=== PATIENT | female | born 1995 | race American Indian/Alaskan Native ===

== ENCOUNTER 2018-05-26 08:29 | Emergency (ER) | payer MEDICAID ==
[2018-05-26 08:37] VITALS: BP 123/77
[2018-05-26 09:17] LABS: Bilirubin,Urine NEG (Negative); Blood,Urine NEG (Negative); Color,Urine Yellow (Yellow); Mucus,Urine 1+ /HPF; Protein,Urine <15 mg/dL mg/dL (Negative)
[2018-05-26] MEDS ORDERED: ZOFRAN ODT PO ONE (09:39)
--- NOTE | 2018-05-26 09:42 | Emergency Department Report ---
ED General Adult HPI - General Chief complaint: Nausea/Vomiting/Diarrhea Stated complaint: NAUSEA & VOMITING Time Seen by Provider: 05/26/18 09:36 Source: patient Mode of arrival: Ambulatory Limitations: No Limitations - History of Present Illness Initial comments: Patient is 23 years old female 2 para 1. Patient presented to the ER complaining of abdominal cramping and nausea and vomiting for the last 2 weeks. Patient stated that her last period was beginning of April. Patient denied any vaginal bleeding or vaginal discharge. No urinary symptoms. Patient denied any fever or diarrhea. Patient stated that she had a positive test one week ago at an urgent care clinic. - Related Data Home Medications Medication Instructions Recorded Confirmed Last Taken Sulfamethoxazole/Trimethoprim 1 each PO BID 08/22/13 08/22/13 08/21/13 23:30 [Bactrim DS] 1 tablet traMADol [Ultram] 50 mg PO Q4HR PRN 08/22/13 08/22/13 08/21/13 23:30 1 tablet Previous Rx's Medication Instructions Recorded Last Taken Type Ibuprofen [Motrin 600 MG tab] 600 mg PO Q8H PRN #14 tablet 08/22/13 Unknown Rx Promethazine [Phenergan] 25 mg PO Q6H PRN #14 tablet 08/22/13 Unknown Rx Allergies Allergy/AdvReac Type Severity Reaction Status Date / Time No Known Allergies Allergy Verified 05/26/18 08:35 ED Review of Systems ROS: Stated complaint: NAUSEA & VOMITING Other details as noted in HPI Comment: All other systems reviewed and negative Constitutional: denies: chills, fever Respiratory: denies: cough Cardiovascular: denies: chest pain, palpitations Gastrointestinal: abdominal pain, nausea. denies: vomiting ED Past Medical Hx - Past Medical History Previous Medical History?: No - Surgical History Past Surgical History?: No - Social History Smoking Status: Never Smoker Substance Use Type: None - Medications Home Medications: Home Medications Medication Instructions Recorded Confirmed Last Taken Type Ibuprofen [Motrin 600 MG tab] 600 mg PO Q8H PRN #14 tablet 08/22/13 Unknown Rx Promethazine [Phenergan] 25 mg PO Q6H PRN #14 tablet 08/22/13 Unknown Rx Sulfamethoxazole/Trimethoprim 1 each PO BID 08/22/13 08/22/13 08/21/13 23:30 History [Bactrim DS] 1 tablet traMADol [Ultram] 50 mg PO Q4HR PRN 08/22/13 08/22/13 08/21/13 23:30 History 1 tablet ED Physical Exam - General Limitations: No Limitations General appearance: alert, in no apparent distress - Head Head exam: Present: atraumatic, normocephalic - ENT ENT exam: Present: normal exam, normal orophraynx, mucous membranes moist - Neck Neck exam: Present: normal inspection, full ROM. Absent: tenderness, meningismus, lymphadenopathy, thyromegaly - Respiratory Respiratory exam: Present: normal lung sounds bilaterally. Absent: respiratory distress, wheezes, decreased breath sounds, prolonged expiratory - Cardiovascular Cardiovascular Exam: Present: regular rate, normal rhythm, normal heart sounds - GI/Abdominal GI/Abdominal exam: Present: soft, normal bowel sounds. Absent: distended, tenderness, guarding, rebound, rigid, organomegaly, mass, bruit, pulsatile mass , hernia - Extremities Exam Extremities exam: Present: normal inspection, full ROM, normal capillary refill - Back Exam Back exam: Present: normal inspection, full ROM. Absent: tenderness, CVA tenderness (R), CVA tenderness (L), muscle spasm, paraspinal tenderness, vertebral tenderness - Neurological Exam Neurological exam: Present: alert, oriented X3, CN II-XII intact, normal gait, reflexes normal - Skin Skin exam: Present: warm, intact, normal color ED Course Vital Signs 05/26/18 08:35 Temperature 98.9 F Pulse Rate 90 Respiratory 16 Rate Blood Pressure 123/77 O2 Sat by Pulse 99 Oximetry ED Medical Decision Making - Lab Data Result diagrams: 05/26/18 09:03 05/26/18 09:03 - Radiology Data Radiology results: report reviewed Referring Physician: VIC VAZQUEZ Patient Name: CHELLY BORJA Date of : 1995 Sex: Female Report Date: 2018-05-26 Report Status: Finalized Findings [facility] [address] [place] [address] Ultrasound Report Signed Patient: CHELLY BORJA MR#: [id number] : 1995 Acct:[id number] Age/Sex: 23 / F ADM Date: 05/26/18 Loc: ED Attending Dr: Ordering Physician: VIC VAZQUEZ Date of Service: 05/26/18 Procedure(s): US OB transvaginal Accession Number(s): [id number] cc: VIC VAZQUEZ FINAL REPORT EXAM: US OB TRANSVAGINAL HISTORY: , n/v TECHNIQUE: Early obstetrical ultrasound was performed. Transvaginal study in conjunction with transabdominal exam performed concurrently. PRIORS: None. FINDINGS: There is a gestational sac in the uterus. This contains a small yolk sac and pole. The crown rump length measurement corresponds to a gestational age of 7 weeks 1 day. This corresponds to MAUDE of 01/11/2019. Cardiac activity is identified, measured at 137 beats per minute. Small subchorionic hemorrhage measuring 1.0 x 0.8 x 1.3 cm. There is no free fluid. Left-sided corpus luteal cyst seen. Ovaries are otherwise unremarkable. IMPRESSION: There is a single live intrauterine of approximately 7 weeks 1 day gestational age. This corresponds to MAUDE of 01/11/2019. Small subchorionic hemorrhage. Transcribed By: DELMA Dictated By: GENARO ANTHONY MD Electronically Authenticated By: GENARO ANTHONY MD Signed Date/Time: 05/26/18 122 DD/ 21 TD/TT: 05/26/181221 Critical care attestation.: If time is entered above; I have spent that time in minutes in the direct care of this critically ill patient, excluding procedure time. ED Disposition Clinical Impression: Abdominal pain affecting , Nausea and vomiting Disposition: DC-01 TO HOME OR SELFCARE Is pt being admited?: No Condition: Stable Instructions: Abdominal Pain in (ED), Acute Nausea and Vomiting (ED) Referrals: PRIMARY CARE, [Primary Care Provider] - 3-5 Days
[2018-05-26 10:07] LABS: Alanine Aminotransferase 9 units/L (7-56); Albumin 4.1 g/dL (3.9-5); BUN/Creatinine Ratio 10; Blood Urea Nitrogen 6 mg/dL (7-17); Calcium 9.2 mg/dL (8.4-10.2); Hemolysis Index 4; Lipase 27 units/L (13-60)
[2018-05-26 10:28] LABS: Basophils % (Auto) 0.4 % (0.0-1.8); Eosinophils # (Auto) 0.1 K/mm3 (0.0-0.4); Hematocrit 37.6 % (30.3-42.9); Hemoglobin 12.8 gm/dl (10.1-14.3); Lymphocytes # (Auto) 2.2 K/mm3 (1.2-5.4); Lymphocytes % (Auto) 32.9 % (13.4-35.0); Mean Corpuscular HGB Conc 34 % (30-34); Mean Corpuscular Hemoglobin 30 pg (28-32); Mean Corpuscular Volume 89 fl (79-97); Monocytes # (Auto) 0.4 K/mm3 (0.0-0.8); Monocytes % (Auto) 6.4 % (0.0-7.3); Platelet Count 189 K/mm3 (140-440); Red Blood Count 4.23 M/mm3 (3.65-5.03); Red Cell Distribution Width 13.2 % (13.2-15.2)
--- NOTE | 2018-05-26 12:26 | Ultrasound Report ---
FINAL REPORT EXAM: US OB < = 14 WEEKS FETUS HISTORY: abdominal pain and . TECHNIQUE: Early obstetrical ultrasound was performed. Transabdominal study in conjunction with transvaginal exam performed concurrently. PRIORS: None. FINDINGS: There is a gestational sac in the uterus. This contains a small yolk sac and pole. The crown rump length measurement corresponds to a gestational age of 7 weeks 1 day. This corresponds to MAUDE of 01/11/2019. Cardiac activity is identified, measured at 137 beats per minute. Small subchorionic hemorrhage measuring 1.0 x 0.8 x 1.3 cm. There is no free fluid. Left-sided corpus luteal cyst seen. Ovaries are otherwise unremarkable. IMPRESSION: There is a single live intrauterine of approximately 7 weeks 1 day gestational age. This corresponds to MAUDE of 01/11/2019. Small subchorionic hemorrhage.
--- NOTE | 2018-05-26 12:27 | Ultrasound Report ---
FINAL REPORT EXAM: US OB TRANSVAGINAL HISTORY: , n/v TECHNIQUE: Early obstetrical ultrasound was performed. Transvaginal study in conjunction with transabdominal exam performed concurrently. PRIORS: None. FINDINGS: There is a gestational sac in the uterus. This contains a small yolk sac and pole. The crown rump length measurement corresponds to a gestational age of 7 weeks 1 day. This corresponds to MAUDE of 01/11/2019. Cardiac activity is identified, measured at 137 beats per minute. Small subchorionic hemorrhage measuring 1.0 x 0.8 x 1.3 cm. There is no free fluid. Left-sided corpus luteal cyst seen. Ovaries are otherwise unremarkable. IMPRESSION: There is a single live intrauterine of approximately 7 weeks 1 day gestational age. This corresponds to MAUDE of 01/11/2019. Small subchorionic hemorrhage.
== END 2018-05-26 12:52 | disposition home or self-care (01) ==
LOC: ED 08:29
DX: O26.891 Other specified pregnancy related conditions, first trimester (principal); O21.8 Other vomiting complicating pregnancy; R10.9 Unspecified abdominal pain; Z3A.01 Less than 8 weeks gestation of pregnancy
CPT/HCPCS: 36415; 76801; 76817; 80053; 81001; 83690; 84702; 85025; Q0162

== ENCOUNTER 2019-09-15 11:57 | Emergency (ER) | payer MEDICAID ==
[2019-09-15 13:16] VITALS: BP 138/74
--- NOTE | 2019-09-15 13:21 | Emergency Department Report ---
Blank Doc - Documentation Documentation: 24-year-old female that presents with left finger pain. This initial assessment/diagnostic orders/clinical plan/treatment(s) is/are subject to change based on patient's health status, clinical progression and re- assessment by fellow clinical providers in the ED. Further treatment and workup at subsequent clinical providers discretion. Patient/guardians urged not to elope from the ED as their condition may be serious if not clinically assessed and managed. Initial orders include: 1- Patient sent to [facility] for further evaluation and treatment 2- xrays
--- NOTE | 2019-09-15 14:19 | XRay Report ---
LEFT FINGERS, 3 VIEWS INDICATION: left 4th finger pain. COMPARISON: None. IMPRESSION: There is mild soft tissue swelling of the fourth digit. A very small chip fracture is i dentified at the base of the middle phalanx of the fourth digit on the frontal and oblique images. Th e remaining left fingers are intact. No joint pathology. Signer Name: Emmanuel Moreira Jr, MD Signed: 09/15/2019 2:14 PM Workstation Name: [id number]
[2019-09-15] MEDS ORDERED: IBUPROFEN 800 MG TAB PO ONE (14:41)
--- NOTE | 2019-09-15 14:48 | Emergency Department Report ---
ED Upper Extremity Inj HPI - General Chief Complaint: Extremity Injury, Upper Stated Complaint: FINGER INJURY Time Seen by Provider: 09/15/19 13:19 Source: patient Mode of arrival: Ambulatory Limitations: No Limitations - History of Present Illness Initial Comments: This is a 24-year-old female presents to ED complaining of left fourth digit pain after she accidentally jammed it against the car door this morning on the way to work. Patient states that pain is localized to the finger. Patient states she started to notice some swelling around the finger and redness she came in to be evaluated. She denies any bleeding or loss of sensation to the finger. Complaint: Injury to:: left, finger (fourth) -: This morning Other Extremity Injury: Fingers: Left (fourth ) Place: home Severity scale (0 -10): 6 Improves With: immobilization Worsens With: movement of extremity Context: other (jammed in car door) Associated Symptoms: denies other symptoms. denies: weakness, numbness - Related Data Home Medications Medication Instructions Recorded Confirmed Last Taken Sulfamethoxazole/Trimethoprim 1 each PO BID 08/22/13 08/22/13 08/21/13 23:30 [Bactrim DS] 1 tablet traMADol [Ultram] 50 mg PO Q4HR PRN 08/22/13 08/22/13 08/21/13 23:30 1 tablet Previous Rx's Medication Instructions Recorded Last Taken Type Ibuprofen [Motrin 600 MG tab] 600 mg PO Q8H PRN #14 tablet 08/22/13 Unknown Rx Promethazine [Phenergan] 25 mg PO Q6H PRN #14 tablet 08/22/13 Unknown Rx Ondansetron [Zofran Odt] 4 mg PO Q8HR PRN #20 tab.rapdis 05/26/18 Unknown Rx Vit Calc,Iron,Folic 1 each PO DAILY #30 tablet 05/26/18 Unknown Rx [ Vitamins] Amoxicillin/Potassium Clav 1 each PO BID #20 tablet 09/28/18 Unknown Rx [Augmentin 875-125 Tablet] Ibuprofen [Motrin 600 MG tab] 600 mg PO Q8H PRN #20 tablet 09/15/19 Unknown Rx Allergies Allergy/AdvReac Type Severity Reaction Status Date / Time No Known Allergies Allergy Verified 05/26/18 08:35 ED Review of Systems ROS: Stated complaint: FINGER INJURY Other details as noted in HPI Comment: All other systems reviewed and negative ED Past Medical Hx - Past Medical History Previous Medical History?: No - Surgical History Past Surgical History?: No - Social History Smoking Status: Never Smoker Substance Use Type: None - Medications Home Medications: Home Medications Medication Instructions Recorded Confirmed Last Taken Type Ibuprofen [Motrin 600 MG tab] 600 mg PO Q8H PRN #14 tablet 08/22/13 Unknown Rx Promethazine [Phenergan] 25 mg PO Q6H PRN #14 tablet 08/22/13 Unknown Rx Sulfamethoxazole/Trimethoprim 1 each PO BID 08/22/13 08/22/13 08/21/13 23:30 History [Bactrim DS] 1 tablet traMADol [Ultram] 50 mg PO Q4HR PRN 08/22/13 08/22/13 08/21/13 23:30 History 1 tablet Ondansetron [Zofran Odt] 4 mg PO Q8HR PRN #20 tab.rapdis 05/26/18 Unknown Rx Vit Calc,Iron,Folic 1 each PO DAILY #30 tablet 05/26/18 Unknown Rx [ Vitamins] Amoxicillin/Potassium Clav 1 each PO BID #20 tablet 09/28/18 Unknown Rx [Augmentin 875-125 Tablet] Ibuprofen [Motrin 600 MG tab] 600 mg PO Q8H PRN #20 tablet 09/15/19 Unknown Rx ED Physical Exam - General Limitations: No Limitations General appearance: alert, in no apparent distress - Head Head exam: Present: atraumatic, normocephalic - Eye Eye exam: Present: normal appearance - ENT ENT exam: Present: mucous membranes moist - Neck Neck exam: Present: normal inspection - Respiratory Respiratory exam: Present: normal lung sounds bilaterally. Absent: respiratory distress - Cardiovascular Cardiovascular Exam: Present: regular rate, normal rhythm. Absent: systolic murmur, diastolic murmur, rubs, gallop - GI/Abdominal GI/Abdominal exam: Present: soft, normal bowel sounds - Extremities Exam Extremities exam: Present: normal inspection, full ROM, tenderness (to the left ring finger knuckle,), normal capillary refill, joint swelling (minimal). Absent: calf tenderness - Back Exam Back exam: Present: normal inspection - Neurological Exam Neurological exam: Present: alert, oriented X3 - Psychiatric Psychiatric exam: Present: normal affect, normal mood - Skin Skin exam: Present: warm, dry, intact, normal color. Absent: rash ED Course Vital Signs 09/15/19 13:15 Temperature 98.2 F Pulse Rate 93 H Respiratory 18 Rate Blood Pressure 138/74 O2 Sat by Pulse 96 Oximetry ED Medical Decision Making - Radiology Data Radiology results: report reviewed, image reviewed Ordering Physician: PANCHO POTTS NP Date of Service: 09/15/19 Procedure(s): XR finger(s) 2+V LT Accession Number(s): [id number] cc: PANCHO POTTS NP Fluoro Time In Minutes: LEFT FINGERS, 3 VIEWS INDICATION: left 4th finger pain. COMPARISON: None. IMPRESSION: There is mild soft tissue swelling of the fourth digit. A very small chip fracture is identified at the base of the middle phalanx of the fourth digit on the frontal and oblique images. The remaining left fingers are intact. No joint pathology. Signer Name: Emmanuel Neal Jr, MD Signed: 09/15/2019 2:14 PM Workstation Name: [id number] Transcribed By: TTR Dictated By: EMMANUEL NEAL JR, MD Electronically Authenticated By: EMMANUEL NEAL JR, MD Signed Date/Time: 09/15/19 1414 - Medical Decision Making 24-year-old female presents to ED with contusion up the fourth digit finger resulting in a small fracture of the bone. Finger x-ray taken see report above. Discussed findings with the patient. Discussed the patient to follow-up with primary care physician. Discussed with orthopedic referral Patient was placed in the finger splint. Motrin was given in the ER. Patient was in no acute distress. Patient was able to move the fingers and did not have any loss of sensation in the fingers. She had no neurological deficit or neurovascular deficit. Discussed the patient to return to ER if any new or worsening symptoms. Critical care attestation.: If time is entered above; I have spent that time in minutes in the direct care of this critically ill patient, excluding procedure time. ED Disposition Clinical Impression: Contusion, finger, Finger fracture, left Disposition: DC-01 TO HOME OR SELFCARE Is pt being admited?: No Does the pt Need Aspirin: No Condition: Stable Instructions: Finger Fracture (ED), Contusion in Adults (ED) Additional Instructions: Make sure to follow up with the primary care physician as discussed. Take all your medications as you've been prescribed. If you have any worsening symptoms or develop new symptoms please return to ED immediately. Prescriptions: Ibuprofen [Motrin 600 MG tab] 600 mg PO Q8H PRN #20 tablet PRN Reason: Fever >101 Referrals: PRIMARY CARE, [Primary Care Provider] - 3-5 Days [facility] [Provider Group] - 3-5 Days Forms: Accompanied Note, Work/School Release Form(ED) Time of Disposition: 14:54
== END 2019-09-15 14:55 | disposition home or self-care (01) ==
LOC: ED 11:57
DX: S62.625A Displaced fracture of middle phalanx of left ring finger, initial encounter for closed fracture (principal); Z79.899 Other long term (current) drug therapy; W23.0XXA Caught, crushed, jammed, or pinched between moving objects, initial encounter; Y93.89 Activity, other specified; Y92.89 Other specified places as the place of occurrence of the external cause; Y99.8 Other external cause status

== ENCOUNTER 2019-11-08 21:23 | Emergency (ER) | payer MEDICAID ==
[2019-11-08 21:40] VITALS: BP 121/64
[2019-11-08] MEDS ORDERED: IBUPROFEN 600 MG TAB PO ONE (21:53)
[2019-11-08] MEDS ORDERED: ACETAMINOPHEN 325 MG TAB PO ONE (21:53)
--- NOTE | 2019-11-08 21:54 | Event Note ---
ED Screening Note Date of service: 11/08/19 Time: 21:51 ED Screening Note: Pt complains of headache x 2 hours states ibuprofen 200 mg did not help denies hx of migraines rates JAIN as a 9/10 in severity denies worst JAIN of life, vision changes, or neuro symptoms This initial assessment/diagnostic orders/clinical plan/treatment(s) is/are subject to change based on patients health status, clinical progression and re- assessment by fellow clinical providers in the ED. Further treatment and workup at subsequent clinical providers discretion. Patient/guardian urged not to elope from the ED as their condition may be serious if not clinically assessed and managed. Initial orders include: Ibuprofen and tylenol
[2019-11-08] MEDS ORDERED: ACETAMINOPHEN 325 MG TAB ONE (21:56)
== END 2019-11-08 22:00 | disposition left against medical advice (07) ==
LOC: ED 21:23
DX: R51 Headache (principal); Z53.21 Procedure and treatment not carried out due to patient leaving prior to being seen by health care provider

== ENCOUNTER 2020-01-07 22:30 | Emergency (ER) | payer MEDICAID ==
[2020-01-07 23:28] VITALS: BP 125/72
[2020-01-08 00:41] LABS: HCG Qualitative,Urine Negative (Negative)
== END 2020-01-08 03:50 | disposition left against medical advice (07) ==
LOC: ED 22:30
DX: G43.909 Migraine, unspecified, not intractable, without status migrainosus (principal); Z53.21 Procedure and treatment not carried out due to patient leaving prior to being seen by health care provider
CPT/HCPCS: 81025

== ENCOUNTER 2021-04-27 17:03 | Outpatient (CLI) | payer MEDICAID ==
[2021-04-27 17:44] VITALS: BP 108/59
[2021-04-27] MEDS ORDERED: ACETAMINOPHEN 325 MG TAB PO ONE (20:01)
--- NOTE | 2021-04-27 23:56 | Ultrasound Report ---
OB ultrasound, biophysical profile FINDINGS: Biophysical profile measures 8 out of 8 with heart rate 155. Weeks 1 day. IMPRESSION: Biophysical profile 8 out of 8 Signer Name: Abiel Harden MD Signed: 04/27/2021 11:52 PM Workstation Name: [id number]
== END 2021-04-27 20:30 | disposition home or self-care (01) ==
LOC: TRG 17:03 → APU 17:16 → TRG 20:30
DX: O36.8120 Decreased fetal movements, second trimester, not applicable or unspecified (principal); Z3A.31 31 weeks gestation of pregnancy
CPT/HCPCS: 76819

== ENCOUNTER 2021-06-10 11:58 | Outpatient (CLI) | payer MEDICAID ==
[2021-06-10 13:24] LABS: Bacteria,Urine 1+ /HPF (Negative); Bilirubin,Urine NEG (Negative); Blood,Urine NEG (Negative); Color,Urine Amber (Yellow); Mucus,Urine 3+ /HPF
[2021-06-10 16:09] VITALS: BP 112/70
[2021-06-10] MEDS ORDERED: LACTATED RINGERS 1,000 ML ONE (16:12)
[2021-06-10] MEDS ORDERED: LACTATED RINGERS 1,000 ML IV ONE (16:30)
[2021-06-10] MEDS ORDERED: cefTRIAXone/NS 1 GM/50 ML 1 GM/50 ML BAG IV SCH (16:30)
--- NOTE | 2021-06-11 11:38 | Ultrasound Report ---
ULTRASOUND OBSTETRIC LIMITED ULTRASOUND BIOPHYSICAL PROFILE INDICATION / CLINICAL INFORMATION: BPP. COMPARISON: None available. FINDINGS: BREATHING MOVEMENT = 2 GROSS BODY MOVEMENT = 2 TONE = 2 QUALITATIVE AMNIOTIC FLUID VOLUME = 2 TOTAL BIOPHYSICAL SCORE = 8/8 AMNIOTIC FLUID INDEX (cm) = 11.6 PRESENTATION: Cephalic. HEART RATE (beats per minute): 157 ADDITIONAL FINDINGS: None. IMPRESSION: 1. Biophysical Score = 8/8 Signer Name: Alcides Humphrey MD Signed: 06/11/2021 11:34 AM Workstation Name: [id number]
--- NOTE | 2021-06-11 11:39 | Ultrasound Report ---
ULTRASOUND OBSTETRIC LIMITED ULTRASOUND BIOPHYSICAL PROFILE INDICATION / CLINICAL INFORMATION: BPP. COMPARISON: None available. FINDINGS: BREATHING MOVEMENT = 2 GROSS BODY MOVEMENT = 2 TONE = 2 QUALITATIVE AMNIOTIC FLUID VOLUME = 2 TOTAL BIOPHYSICAL SCORE = 8/8 AMNIOTIC FLUID INDEX (cm) = 11.6 PRESENTATION: Cephalic. HEART RATE (beats per minute): 157 ADDITIONAL FINDINGS: No placental abruption IMPRESSION: 1. Biophysical Score = 8/8 Signer Name: Alcides Humphrey MD Signed: 06/11/2021 11:34 AM Workstation Name: [id number]
== END 2021-06-10 17:57 | disposition home or self-care (01) ==
LOC: TRG 11:58 → APU 11:59 → TRG 17:57
DX: O62.9 Abnormality of forces of labor, unspecified (principal); Z3A.37 37 weeks gestation of pregnancy
CPT/HCPCS: 59025; 76815; 76819; 81001; 87086; 96365; 96366; J0696; J7120; 96360